=== PATIENT | female | born 1995 | race Two or more races ===

== ENCOUNTER 2025-10-12 22:48 | Emergency (ER) | payer BC, OTHER ==
[~2025-10-12] VITALS: Ht 160 cm; Wt 56.2 kg
[2025-10-12] MEDS ORDERED: KETOROLAC TROMETHAMINE 30 MG INJ ONE (23:36)
[2025-10-12] MEDS: KETOROLAC TROMETHAMINE 30 MG INJ IM ONE (23:43)
[2025-10-12 23:45] LABS: PLATELET COUNT (AUTO) 311 K/uL (179-408); RED BLOOD CELL COUNT(AUTO) 4.57 MIL/uL (3.63-4.92); RED CELL DISTRIBUTION WIDTH 14.3 % (12.3-17.7); WHITE BLOOD COUNT (AUTO) 8.4 K/uL (3.8-11.8)
[2025-10-12 23:48] LABS: ERYTHROCYTE SEDIMENTATION RATE 12 MM/HR (0-20)
[2025-10-12 23:52] LABS: CREATININE 0.7 mg/dL (0.6-1.3); SODIUM SERUM 142.0 mmol/L (136-145); UREA NITROGEN, BLOOD 16.0 mg/dL (7-18)
[2025-10-12 23:54] LABS: *URINE HCG, QUAL NEGATIVE (NEGATIVE)
[2025-10-12 23:58] LABS: ASPARTATE AMINOTRANSFERASE 15.0 U/L (15-37); TOTAL PROTEIN, SERUM 7.3 g/dL (6.4-8.2)
[2025-10-13] MEDS ORDERED: NAPR-1164 PO (02:38)
[2025-10-13 03:00] VITALS: BP 127/76
[2025-10-13 03:45] VITALS: BP 122/71; O2SAT 100
== END 2025-10-13 03:19 | disposition home or self-care (01) ==
LOC: ER 22:51
DX: M79.602 Pain in left arm (principal); M79.605 Pain in left leg; Z88.0 Allergy status to penicillin; R51.9 Headache, unspecified
CPT/HCPCS: 36415; 70450; 84703; 85025; 85651; A4606; A4663; J1885